=== PATIENT | female | born 1985 | race American Indian/Alaskan Native ===

== ENCOUNTER 2017-05-16 07:52 | Day surgery (SDC) | payer BC ==
--- NOTE | 2017-05-16 09:41 | Anesthesia Consultation ---
Anesthesia Consult and Med Hx Date of service: 05/16/17 - Airway Anesthetic Teeth Evaluation: Good ROM Head & Neck: Adequate Mental/Hyoid Distance: Adequate Mallampati Class: Class II Intubation Access Assessment: Probably Good - Pulmonary Exam CTA: Yes - Cardiac Exam Cardiac Exam: RRR - Pre-Operative Health Status ASA Pre-Surgery Classification: ASA1 Proposed Anesthetic Plan: General - Pulmonary Hx Smoking: No - Cardiovascular System Hx Hypertension: No - Central Nervous System Hx Psychiatric Problems: No - Gastrointestinal Hx Gastroesophageal Reflux Disease: No - Endocrine Hx Insulin Dependent Diabetes: No - Other Systems Hx Cancer: No
--- NOTE | 2017-05-16 09:42 | Anesthesia Day of Surgery ---
Anesthesia Day of Surgery - Day of Surgery Patient Examined: Yes Patient H&P Reviewed: Yes Patient is NPO: Yes
[2017-05-16] MEDS ORDERED: VERSED IV NR (10:00)
[2017-05-16] MEDS ORDERED: LACTATED RINGERS 1,000 ML IV SCH (10:00)
[2017-05-16] MEDS ORDERED: ANCEF/STERILE WATER 2 GM/20 ML IV NR (10:00)
[2017-05-16] MEDS ORDERED: PEPCID IV NR (10:00)
[2017-05-16] MEDS ORDERED: NACL BACTERIOSTATIC INFILTRATI ONE (10:02)
[2017-05-16 10:23] LABS: Basophils % (Auto) 0.5 % (0.0-1.8); Eosinophils % (Auto) 1.5 % (0.0-4.3); Hematocrit 43.3 % (30.3-42.9); Hemoglobin 14.1 gm/dl (10.1-14.3); Mean Corpuscular HGB Conc 33 % (30-34); Mean Corpuscular Hemoglobin 32 pg (28-32); Mean Corpuscular Volume 97 fl (79-97); Platelet Count 180 K/mm3 (140-440); Red Blood Count 4.48 M/mm3 (3.65-5.03); Red Cell Distribution Width 13.6 % (13.2-15.2)
[2017-05-16] MEDS ORDERED: NACL 0.9% IR ONE (10:45)
[2017-05-16] MEDS ORDERED: DILAUDID ONE ×3 (10:47→13:53)
[2017-05-16] MEDS ORDERED: DIPRIVAN 10 MG/ML IV ONE (10:47)
[2017-05-16] MEDS ORDERED: XYLOCAINE MPF 2% ONE (11:31)
[2017-05-16] MEDS ORDERED: ZOFRAN ONE ×2 (13:16→15:46)
--- NOTE | 2017-05-16 15:04 | Operative Report ---
SERVICE: Plastic surgery. PREOPERATIVE DIAGNOSIS: Macromastia. POSTOPERATIVE DIAGNOSIS: Macromastia. PROCEDURE: Bilateral reduction mammoplasty. SURGEON: German Perez MD WELL PULLER HEAD: Cornelius Gray CSA FINDINGS: 500 gm of tissue removed from each breast. DESCRIPTION OF PROCEDURE: The patient was brought to the operating room and placed on the table in supine position. Following administration of general anesthesia, bilateral breasts were prepped with Betadine solution and draped in usual sterile manner. A #10 blade scalpel was used to make a circumareolar skin incision followed by de-epithelization of an inferior dermal pedicle. Modified Jasso pattern skin markings were incised with scalpel, deepened through subcutaneous fat and breast tissue using the electrocautery. Skin flaps were raised in standard manner as was fashioning of an inferior central mound pedicle. Breasts tissue was resected and sent to pathology as specimen. Closure was performed over 10-mm Magdi drain using interrupted and running subcuticular 2-0 Monocryl sutures. Mastisol, Steri-Strips, and sterile dressings applied. The patient tolerated the procedure well and returned to recovery room in stable condition. JOB# [id number] FTW/NTS
[2017-05-16] MEDS ORDERED: ZOFRAN IV ONE (15:51)
[2017-05-16 16:14] VITALS: BP 120/73
== END 2017-05-16 17:12 | disposition home or self-care (01) ==
LOC: OR 07:52 → EDBD 15:00 → OR 17:12
PROVIDERS: ATTEND Plastic Surgery
DX: N62 Hypertrophy of breast (principal)
CPT/HCPCS: 19318; 36415; 81025; 85025; 88305; J0690; J1170; J2250; J2405; J2704; J7120